=== PATIENT | male | born 1975 | race Caucasian/White ===

== ENCOUNTER 2020-01-28 13:25 | Observation (INO) | payer OTHER ==
[~2020-01-28 13:25] MED LIST: GLYCOPYRROLATE 1 MG/5 ML VIAL ONE; KETOROLAC TROMETHAMINE 60 MG/2 ML SDV ONE; NEOSTIGMINE METHYLSULFATE 10 MG/10 ML VIAL ONE; PHENYLEPHRINE HCL INJ/PF 10 MG/1 ML SDV ONE
[2020-01-28] MEDS ORDERED: ONDANSETRON HCL INJ/PF 4 MG/2 ML SDV IV ONE (13:33)
[2020-01-28] MEDS ORDERED: HYDROMORPHONE HCL INJ/PF 2 MG/ML AMPULE IV ONE (13:33)
[2020-01-28] MEDS ORDERED: NORMAL SALINE 500 ML IV ONE (13:34)
[2020-01-28] MEDS ORDERED: CEFAZOLIN 2 GM/D5W RTU 2 GM/50 ML RTUPB IV ONE (13:34)
--- NOTE | 2020-01-28 13:37 | ER Document Report ---
ED Fall - General Chief Complaint: Fall Injury Stated Complaint: FALL,LEG INJURY Time Seen by Provider: 01/28/20 13:28 Primary Care Provider: ARNIE DAVID FNP [Primary Care Provider] - Follow up as needed Notes: CHIEF COMPLAINT: Left leg fracture HPI: 44-year-old male with history of hypertension presenting for evaluation of possible open left leg fracture. Patient fell off his horse landing with his leg down states the lower leg from the mid tibial region was extending into 45 degree angle. He did straighten it slightly. States he did see the bone come through the skin. Patient denies numbness or tingling in the toes denies knee pain hip pain thigh pain head injury or other complaints at this time. Patient last ate at 730 this morning. EMS reports that they have given patient fentanyl 150 mcg at this point ROS: See HPI - all other systems were reviewed and are otherwise negative Constitutional: no fever or recent illness Eyes: no drainage, no blurred vision ENT: no runny nose, no sore throat Cardiovascular: no chest pain Resp: no SOB, no cough GI: no vomiting, no diarrhea : no dysuria Integumentary: no rash Allergy: no hives Musculoskeletal: + extremity pain or swelling Neurological: no numbness/tingling, no weakness MEDICATIONS: I agree with the patient medications as charted by the RN. ALLERGIES: I agree with the allergies as charted by the RN. PAST MEDICAL HISTORY/PAST SURGICAL HISTORY: Reviewed and agree as charted by RN. SOCIAL HISTORY: Reviewed and agree as charted by RN. FAMILY HISTORY: No significant familial comorbid conditions directly related to patient complaint EXAM: Reviewed vital signs as charted by RN. CONSTITUTIONAL: Airway patent; alert and oriented and responds appropriately to questions. Well-appearing, well-nourished, moderate distress secondary to pain HEAD: Normocephalic, atraumatic EYES: PERRL; EOM intact; Conjunctivae clear, sclerae non-icteric ENT: normal nose; no bleeding; normal pharynx, normal voice, no stridor NECK: Trachea is midline; spine non-tender, no step-offs, good range of motion; no contusions or hematomas CARD: Normal symmetric pulses; RRR; no murmurs, no clicks, no rubs, no gallops RESP: Normal chest excursion with respiration; chest wall appears atraumatic without ecchymoses or crepitance; Breath sounds clear and equal bilaterally ABD/GI: Appears atraumatic without contusions or hematomas; non-distended, soft, non-tender, no rebound, no guarding; no palpable organomegaly or masses PELVIS: Stable, nontender BACK: The back appears atraumatic, no step-offs; spine is nontender; there is no CVA tenderness EXT: Limited range of motion left lower extremity. There does appear to be a 2 cm wound to the medial aspect of the left mid tibial region. There is distal deformity with rotation of the lower leg. Dorsalis pedis and posterior tibial pulses are present in the left ankle and foot. Sensation is intact in the distal toes of the left foot with capillary refill less than 3 seconds SKIN: Normal color for age and race; warm; dry; good turgor NEURO: Moves all extremities equally; Motor and sensory function intact PSYCH: The patient's mood and manner are appropriate. MDM: 44-year-old male with possible open tibial fracture. Will obtain screening labs, preop EKG chest x-ray. Will obtain x-ray imaging of the leg discussed with orthopedics. Will keep patient n.p.o. Will address patient's pain issues. Will start Ancef 2 g IV. Patient states he is up-to-date on his tetanus vaccination TRAVEL OUTSIDE OF THE [place] IN LAST 30 DAYS: No Past Medical History - Social History Smoking Status: Unknown if Ever Smoked Family History: Reviewed & Not Pertinent - Past Medical History Cardiac Medical History: Reports: Hx Hypertension Course - Re-evaluation Re-evalutation: 01/28/20 13:[address] Ramirez, case discussed, will admit Discharge - Discharge Clinical Impression: Fall from horse Qualifiers: Encounter type: initial encounter Qualified Code(s): V80.010A - Animal-rider injured by fall from or being thrown from horse in noncollision accident, initial encounter Fracture of tibia with fibula, left, open Qualifiers: Encounter type: initial encounter Open fracture type: open type III Qualified Code(s): S82.202C - Unspecified fracture of shaft of left tibia, initial encounter for open fracture type IIIA, IIIB, or IIIC; S82.402C - Unspecified fracture of shaft of left fibula, initial encounter for open fracture type IIIA, IIIB, or IIIC Condition: Stable Disposition: ADMITTED INPATIENT Admitting Provider: Dr. Angelo Ramirez Unit Admitted: Surgical Floor Referrals: ARNIE DAVID FNP [Primary Care Provider] - Follow up as needed
[2020-01-28 14:01] LABS: INTERNATIONAL RATION (INR) 1.06; PROTHROMBIN TIME 13.8 SEC (11.4-15.4)
--- NOTE | 2020-01-28 14:05 | RADIOLOGY REPORT (SQ) ---
EXAM DESCRIPTION: TIBIA FIBULA LEFT IMAGES COMPLETED DATE/TIME: 01/28/2020 1:52 pm REASON FOR STUDY: open fracture COMPARISON: None. NUMBER OF VIEWS: Two views. TECHNIQUE: Two radiographic images acquired of the left tibia and fibula to include the knee and ank le in at least one projection. LIMITATIONS: None. FINDINGS: MINERALIZATION: Normal. BONES: Fractures of the midshaft of the tibia and fibula with angulation and overlap. SOFT TISSUES: No obvious swelling or foreign body. OTHER: No other significant finding. IMPRESSION: FRACTURES OF THE TIBIA AND FIBULA. TECHNICAL DOCUMENTATION: JOB ID: [id number] 2010 [employer]- All Rights Reserved Reading location - IP/workstation name: [email or web address]
--- NOTE | 2020-01-28 14:06 | RADIOLOGY REPORT (SQ) ---
EXAM DESCRIPTION: CHEST SINGLE VIEW IMAGES COMPLETED DATE/TIME: 01/28/2020 1:52 pm REASON FOR STUDY: pre op COMPARISON: None. EXAM PARAMETERS: NUMBER OF VIEWS: One view. TECHNIQUE: Single frontal radiographic view of the chest acquired. RADIATION DOSE: NA LIMITATIONS: None. FINDINGS: LUNGS AND PLEURA: No opacities, masses or pneumothorax. No pleural effusion. MEDIASTINUM AND HILAR STRUCTURES: No masses. Contour normal. HEART AND VASCULAR STRUCTURES: Heart normal in size. Normal vasculature. BONES: No acute findings. HARDWARE: None in the chest. OTHER: No other significant finding. IMPRESSION: NO ACUTE RADIOGRAPHIC FINDING IN THE CHEST. TECHNICAL DOCUMENTATION: JOB ID: [id number] 2010 [employer]- All Rights Reserved Reading location - IP/workstation name: [email or web address]
[2020-01-28 14:18] LABS: ABSOLUTE BASOPHILS # (AUTO) 0.1 10^3/uL (0.0-0.2); ABSOLUTE EOSINOPHILS # (AUTO) 0.3 10^3/uL (0.0-0.6); ABSOLUTE LYMPHOCYTES (AUTO) 2.3 10^3/uL (0.5-4.7); ABSOLUTE MONOCYTES (AUTO) 0.9 10^3/uL (0.1-1.4); ABSOLUTE NEUT (AUTO) 8.9 10^3/uL (1.7-8.2); BASOPHILS % (AUTO) 0.6 % (0-2); EOSINOPHILS % (AUTO) 2.3 % (0-6); HEMATOCRIT 44.6 % (37.9-51.0); HEMOGLOBIN 15.4 g/dL (13.5-17.0); LYMPHOCYTES % (AUTO) 18.4 % (13-45); MEAN CORPUSCULAR HEMOGLOBIN 31.1 pg (27.0-33.4); MEAN CORPUSCULAR HGB CONC 34.6 g/dL (32.0-36.0); MEAN CORPUSCULAR VOLUME 90 fl (80-97); MONOCYTES % (AUTO) 6.9 % (3-13); PLATELET COUNT 296 10^3/uL (150-450); RED BLOOD COUNT 4.96 10^6/uL (4.35-5.55); RED CELL DISTRIBUTION WIDTH 13.4 % (11.5-14.0); SEGMENTED NEUTROPHILS % (AUTO) 71.8 % (42-78); TOTAL CELLS COUNTED % (AUTO) 100 %; WHITE BLOOD COUNT 12.4 10^3/uL (4.0-10.5)
[2020-01-28 14:20] LABS: ALBUMIN 4.4 g/dL (3.5-5.0); ALKALINE PHOSPHATASE 92 U/L (38-126); ANION GAP 7 (5-19); ASPARTATE AMINO TRANSFERASE 33 U/L (17-59); BILIRUBIN,DIRECT 0.1 mg/dL (0.0-0.4); BILIRUBIN,TOTAL 0.4 mg/dL (0.2-1.3); BLOOD UREA NITROGEN 19 mg/dL (7-20); CALCIUM 9.5 mg/dL (8.4-10.2); CARBON DIOXIDE 26 mmol/L (22-30); CHLORIDE 103 mmol/L (98-107); GLUCOSE 107 mg/dL (75-110); POTASSIUM 5.1 mmol/L (3.6-5.0); TOTAL PROTEIN 7.8 g/dL (6.3-8.2)
--- NOTE | 2020-01-28 14:30 | PDOC H&P ---
History of Present Illness Admission Date/PCP: 01/28/20 14:10 ZOHAIB CAAL History of Present Illness: DANIELLA TUBBS is a 44 year old male 44-year-old white male with a past medical history significant only for hypertension who fell off a horse today and sustained an open left distal third tib-fib fracture. He is brought to the emergency room and orthopedics is consulted for fracture management. Past Medical History Cardiac Medical History: Reports: Hypertension Past Surgical History Past Surgical History: Reports: None Social History Information Source: Patient, [facility] Records Smoking Status: Unknown if Ever Smoked Family History Family History: Reviewed & Not Pertinent Parental Family History Reviewed: No Children Family History Reviewed: No Sibling(s) Family History Reviewed.: No Medication/Allergy Home Medications: Methocarbamol [Robaxin 500 Mg Tablet] 500 mg PO QID PRN #30 tablet 03/17/16 Oxycodone HCl/Acetaminophen [Percocet 5-325 mg Tablet] 1 - 2 tab PO ASDIR PRN #15 tablet 03/17/16 Review of Systems All systems: as per [facility] Physical Exam Vital Signs: Temp Pulse Resp BP Pulse Ox 37.1 C 01/28/20 13:30 Intake & Output 01/27/20 01/28/20 01/29/20 06:59 06:59 06:59 Weight 117.1 kg Physical Exam: Patient is alert, oriented, and appropriate middle-aged white male lying on emergency room gurney. Left lower extremity is immobilized in a splint. There is considerable blood about the dressing. General appearance: PRESENT: mild distress Head exam: PRESENT: normocephalic Respiratory exam: PRESENT: unlabored Cardiovascular exam: PRESENT: RRR Pulses: PRESENT: +1 pedal pulses bilateral Vascular exam: PRESENT: normal capillary refill GI/Abdominal exam: PRESENT: soft Rectal exam: PRESENT: deferred Extremities exam: PRESENT: other - Dressing is taken down from the anterior aspect of the junction middle and distal thirds of the tibia. This is a grade 2 open soft tissue injury with bone protruding through the skin. Distal neurovascular examination is intact. Neurological exam: PRESENT: alert, awake, oriented to person, oriented to place, oriented to time, oriented to situation. ABSENT: motor sensory deficit Psychiatric exam: PRESENT: appropriate affect, normal mood. ABSENT: homicidal ideation, suicidal ideation Skin exam: PRESENT: dry, intact, warm. ABSENT: cyanosis, rash Results Laboratory Results: 01/28/20 13:43 01/28/20 13:43 01/28/20 01/28/20 13:43 13:43 WBC 12.4 H RBC 4.96 Hgb 15.4 Hct 44.6 MCV 90 MCH 31.1 MCHC 34.6 RDW 13.4 Plt Count 296 Seg Neutrophils % 71.8 Sodium 136.0 L Potassium 5.1 H Chloride 103 Carbon Dioxide 26 Anion Gap 7 BUN 19 Creatinine 1.11 Est GFR ( Amer) > 60 Glucose 107 Calcium 9.5 Total Bilirubin 0.4 AST 33 Alkaline Phosphatase 92 Total Protein 7.8 Albumin 4.4 Impressions: Tibia/Fibula X-Ray 01/28/20 13:32 IMPRESSION: FRACTURES OF THE TIBIA AND FIBULA. Chest X-Ray 01/28/20 13:33 IMPRESSION: NO ACUTE RADIOGRAPHIC FINDING IN THE CHEST. Status: Imported from PACS Assessment & Plan - Diagnosis (1) Fracture of tibia with fibula, left, open Qualifiers: Encounter type: initial encounter Open fracture type: open type III Qualified Code(s): S82.202C - Unspecified fracture of shaft of left tibia, initial encounter for open fracture type IIIA, IIIB, or IIIC; S82.402C - Unspecified fracture of shaft of left fibula, initial encounter for open fracture type IIIA, IIIB, or IIIC Is this a current diagnosis for this admission?: Yes Plan: Plan for an I&D, ORIF of the left distal third tibia fracture under regional anesthesia - Time Time Spent: 50 to 70 Minutes Anticipated discharge: Home with Homehealth Within: within 24 hours
[2020-01-28] MEDS ORDERED: LIDOCAINE 2% INJ-PF (20 MG/ML) 10 ML AMPUL ONE (14:47)
[2020-01-28] MEDS ORDERED: FENTANYL CITRATE INJ/PF 100 MCG/2 ML AMPUL ONE (14:47)
[2020-01-28] MEDS ORDERED: DEXAMETHASONE SOD PHOSPHATE INJ 4 MG/1 ML VIAL ONE (14:48)
[2020-01-28] MEDS ORDERED: HYDROMORPHONE HCL INJ/PF 2 MG/ML AMPULE ONE ×2 (14:48→15:15)
[2020-01-28] MEDS ORDERED: MIDAZOLAM 2 MG/2 ML INJ ONE (14:48)
[2020-01-28] MEDS ORDERED: PROPOFOL INJ 200 MG/20 ML VIAL IV ONE (14:48)
[2020-01-28] MEDS ORDERED: ONDANSETRON HCL INJ/PF 4 MG/2 ML SDV ONE (14:48)
[2020-01-28] MEDS ORDERED: CEFAZOLIN SODIUM 2 GM in DEXTROSE 5%-WATER 100 ML IV ONE (15:00)
--- NOTE | 2020-01-28 15:28 | EKG REPORT ---
SEVERITY:- NORMAL ECG - SINUS RHYTHM : Confirmed by: Sapna Lau MD 28-Jan-2020 15:27:19
[2020-01-28] MEDS ORDERED: BUPIVACAINE HCL 0.5%-EPI 1:200000 INJ/PF 30 ML VIAL ONE (15:31)
[2020-01-28] MEDS ORDERED: TRANEXAMIC ACID INJ/PF 1,000 MG/10 ML SDV ONE (15:31)
[2020-01-28] MEDS ORDERED: OXYCODONE-ACETAMINOPHEN 5-325 MG TABLET PO PRN ×2 (16:27)
[2020-01-28] MEDS ORDERED: PROMETHAZINE HCL INJ 25 MG/1 ML VIAL IV PRN ×2 (16:27)
[2020-01-28] MEDS ORDERED: DIPHENHYDRAMINE HCL 50 MG/ML VIAL IV PRN (16:27)
[2020-01-28] MEDS ORDERED: FENTANYL CITRATE INJ/PF 100 MCG/2 ML AMPUL IV PRN ×3 (16:27)
[2020-01-28] MEDS ORDERED: MORPHINE SULFATE 10 MG/ML INJ IV PRN (16:27)
[2020-01-28] MEDS ORDERED: MEPERIDINE HCL/PF INJ 25 MG/1 ML DISP.SYRIN IV PRN (16:27)
[2020-01-28] MEDS ORDERED: CEFTRIAXONE INJ 1000 MG VIAL ONE (16:35)
[2020-01-28] MEDS ORDERED: BACITRACIN INJ 50,000 UNIT VIAL ONE (17:04)
--- NOTE | 2020-01-28 17:24 | Operative Report ---
Operative Report DATE OF SURGERY: 01/28/20 PREOPERATIVE DIAGNOSIS: Left grade 2 open tib-fib fracture OPERATION: Irrigation debridement of skin, fascia, and bone at the open fracture site. Intramedullary nailing of left tibia fracture SURGEON: JULY MCCALLUM ANESTHESIA: GA TISSUE REMOVED OR ALTERED: Cultures to microbiology ESTIMATED BLOOD LOSS: 50 PROCEDURE: With the patient supine on the operating table left lower extremity undergoes a pre-scrub. The left lower extremity is prepped and draped in a sterile fashion. The skin fascia and bone that have extruded through the skin at the junction of the middle and distal thirds of the tibia along its anteromedial border is debrided of nonviable tissue. Subsequent longitudinal incision was made over the patellar tendon and sharp dissection used to expose the underlying proximal tibia. A pin is placed by hand into the proximal tibial metadiaphysis. A combined reamer is now used to open cortical opening. A ball-tipped guide rods placed down the tibia across the fracture site. Tibial length is noted to be 345 mm. Subsequently flexible reamers were used to enlarge the medullary canal to 11 mm. Next a tibial T2 titanium [place] nail which is 345 mm x 10 mm is advanced over the ball-tipped guide quintin to an appropriate depth. A single proximal interlock is placed. 2 orthogonal distal interlocks were placed. The fracture reduction and hardware placement checked fluoroscopically and felt to be adequate. The tourniquet is deflated. The wounds are irrigated with lavage. The closure was interrupted Vicryl followed by akbar. A sterile compressive dressing was applied and the patient is returned to the PACU in satisfactory condition.
--- NOTE | 2020-01-28 18:03 | RADIOLOGY REPORT (SQ) ---
EXAM DESCRIPTION: NO CHG FLUORO; TIBIA FIBULA LEFT IMAGES COMPLETED DATE/TIME: 01/28/2020 5:36 pm REASON FOR STUDY: ORIF LEFT TIBIA COMPARISON: Left tibia and fibula 01/28/2020 FLUOROSCOPY TIME: 1.1 minutes 12 digital fluoroscopic images saved to PACS. TECHNIQUE: Intra-operative images acquired during surgical procedure to evaluate progress. NUMBER OF IMAGES: 12 digital fluoroscopic images LIMITATIONS: None. FINDINGS: Intra procedural imaging and fluoro during ORIF left tibia and fibula fractures IMPRESSION: IMAGE(S) OBTAINED DURING PROCEDURE. COMMENT: Quality ID 145: Final reports for procedures using fluoroscopy that document radiation exp osure indices, or exposure time and number of fluorographic images (if radiation exposure indices are not available) Please consult full operative report of the attending physician for description of the procedure. TECHNICAL DOCUMENTATION: JOB ID: [id number] 2010 [employer]- All Rights Reserved Reading location - IP/workstation name: [id number]
--- NOTE | 2020-01-28 18:03 | RADIOLOGY REPORT (SQ) ---
EXAM DESCRIPTION: NO CHG FLUORO; TIBIA FIBULA LEFT IMAGES COMPLETED DATE/TIME: 01/28/2020 5:36 pm REASON FOR STUDY: ORIF LEFT TIBIA COMPARISON: Left tibia and fibula 01/28/2020 FLUOROSCOPY TIME: 1.1 minutes 12 digital fluoroscopic images saved to PACS. TECHNIQUE: Intra-operative images acquired during surgical procedure to evaluate progress. NUMBER OF IMAGES: 12 digital fluoroscopic images LIMITATIONS: None. FINDINGS: Intra procedural imaging and fluoro during ORIF left tibia and fibula fractures IMPRESSION: IMAGE(S) OBTAINED DURING PROCEDURE. COMMENT: Quality ID 145: Final reports for procedures using fluoroscopy that document radiation exp osure indices, or exposure time and number of fluorographic images (if radiation exposure indices are not available) Please consult full operative report of the attending physician for description of the procedure. TECHNICAL DOCUMENTATION: JOB ID: [id number] 2010 [employer]- All Rights Reserved Reading location - IP/workstation name: [id number]
[2020-01-28] MEDS ORDERED: RINGERS SOLUTION,LACTATED 1,000 ML IV PRN (18:38)
[2020-01-28] MEDS ORDERED: ONDANSETRON 4 MG TAB.RAPDIS PO PRN (18:40)
[2020-01-28] MEDS ORDERED: TRANEXAMIC ACID INJ/PF 1,000 MG/10 ML SDV IV ONE (19:00)
[2020-01-28] MEDS: ACETAMINOPHEN 325 MG TABLET PO PRN (20:29)
[2020-01-28] MEDS: OXYCODONE HCL IR 5 MG TABLET PO PRN (20:30)
[2020-01-28] MEDS: MORPHINE SULFATE 10 MG/ML INJ IV PRN (22:19)
[2020-01-28] MEDS: IBUPROFEN 800 MG in NORMAL SALINE 250 ML IV SCH (22:23)
[2020-01-29] MEDS: MORPHINE SULFATE 10 MG/ML INJ IV PRN ×2 (00:28→02:36)
[2020-01-29] MEDS: ACETAMINOPHEN 325 MG TABLET PO PRN (05:33)
[2020-01-29] MEDS: IBUPROFEN 800 MG in NORMAL SALINE 250 ML IV SCH (05:33)
[2020-01-29] MEDS: OXYCODONE HCL IR 5 MG TABLET PO PRN ×2 (05:34→11:44)
--- NOTE | 2020-01-29 07:09 | PDOC DISCHARGE SUMMARY ---
Impression - Admit/DC Date/PCP Admission Date/Primary Care Provider: 01/28/20 14:10 ZOHAIB CAAL Discharge Date: 01/29/20 - Discharge Diagnosis (1) Fracture of tibia with fibula, left, open Is this a current diagnosis for this admission?: Yes - Additional Information Resuscitation Status: Full Code Discharge Diet: As Tolerated, Regular Discharge Activity: Balance Activity w/Rest, No tub bath Referrals: ARNIE DAVID FNP [Primary Care Provider] - Follow up as needed Prescriptions: Oxycodone HCl [Oxy-Ir 5 mg Tablet] 5 mg PO Q6HP PRN #40 tablet PRN Reason: Home Medications: Amlodipine Besylate [Norvasc 10 mg Tablet] 10 mg PO DAILY 01/28/20 Carvedilol Phosphate [Carvedilol ER] 10 mg PO DAILY 01/28/20 Duloxetine HCl [Cymbalta] 60 mg PO DAILY 01/28/20 Naproxen [Naprosyn 250 mg Tablet] 400 mg PO QIDP PRN 01/28/20 Sildenafil Citrate 50 mg PO ASDIR PRN 01/28/20 Zolpidem Tartrate [Ambien 5 mg Tablet] 5 mg PO HSP PRN 01/28/20 Oxycodone HCl [Oxy-Ir 5 mg Tablet] 5 mg PO Q6HP PRN #40 tablet 01/29/20 History of Present Illiness History of Present Illness: Patient is a 44-year-old white male who fell off a horse on the day admission and sustained a grade 2 open left tib-fib fracture Hospital Course Hospital Course: Patient is admitted through the emergency room and taken emergently to the operating room where he undergoes an I&D of the open fracture as well as internal fixation. He tolerates the procedure without complications returned to floor in satisfactory condition. He is maintained on IV Rocephin prophylactically. He will be seen by physical therapy on the first postoperative morning for instruction on touchdown weightbearing ambulation. Physical Exam Vital Signs: Temp Pulse Resp BP Pulse Ox 36.6 C 84 18 125/73 93 01/28/20 23:57 01/28/20 23:57 01/28/20 23:57 01/28/20 23:57 01/28/20 23:57 Intake & Output 01/28/20 01/29/20 01/30/20 06:59 06:59 06:59 Intake Total 6000 Output Total 3725 Balance 2275 Weight 112.9 kg General appearance: PRESENT: no acute distress, mild distress, obese Head exam: PRESENT: normocephalic Respiratory exam: PRESENT: unlabored Cardiovascular exam: PRESENT: RRR Vascular exam: PRESENT: normal capillary refill GI/Abdominal exam: PRESENT: soft Rectal exam: PRESENT: deferred Musculoskeletal exam: PRESENT: other - Lower extremity is immobilized in a compressive dressing. Toes demonstrate brisk capillary refill, active flexion extension of the great toe, and intact sensation to light touch. Skin exam: PRESENT: dry, intact, warm. ABSENT: cyanosis, rash Results Laboratory Results: WBC 12.4 10^3/uL (4.0-10.5) H 01/28/20 13:43 RBC 4.96 10^6/uL (4.35-5.55) 01/28/20 13:43 Hgb 15.4 g/dL (13.5-17.0) 01/28/20 13:43 Hct 44.6 % (37.9-51.0) 01/28/20 13:43 MCV 90 fl (80-97) 01/28/20 13:43 MCH 31.1 pg (27.0-33.4) 01/28/20 13:43 MCHC 34.6 g/dL (32.0-36.0) 01/28/20 13:43 RDW 13.4 % (11.5-14.0) 01/28/20 13:43 Plt Count 296 10^3/uL (150-450) 01/28/20 13:43 Lymph % (Auto) 18.4 % (13-45) 01/28/20 13:43 [place] % (Auto) 6.9 % (3-13) 01/28/20 13:43 Eos % (Auto) 2.3 % (0-6) 01/28/20 13:43 Baso % (Auto) 0.6 % (0-2) 01/28/20 13:43 Absolute Neuts (auto) 8.9 10^3/uL (1.7-8.2) H 01/28/20 13:43 Absolute Lymphs (auto) 2.3 10^3/uL (0.5-4.7) 01/28/20 13:43 Absolute Monos (auto) 0.9 10^3/uL (0.1-1.4) 01/28/20 13:43 Absolute Eos (auto) 0.3 10^3/uL (0.0-0.6) 01/28/20 13:43 Absolute Basos (auto) 0.1 10^3/uL (0.0-0.2) 01/28/20 13:43 Seg Neutrophils % 71.8 % (42-78) 01/28/20 13:43 PT 13.8 SEC (11.4-15.4) 01/28/20 13:43 INR 1.06 01/28/20 13:43 Sodium 136.0 mmol/L (137-145) L 01/28/20 13:43 Potassium 5.1 mmol/L (3.6-5.0) H 01/28/20 13:43 Chloride 103 mmol/L (98-107) 01/28/20 13:43 Carbon Dioxide 26 mmol/L (22-30) 01/28/20 13:43 Anion Gap 7 (5-19) 01/28/20 13:43 BUN 19 mg/dL (7-20) 01/28/20 13:43 Creatinine 1.11 mg/dL (0.52-1.25) 01/28/20 13:43 Est GFR ( Amer) > 60 (>60) 01/28/20 13:43 Est GFR (MDRD) Non-Af > 60 (>60) 01/28/20 13:43 Glucose 107 mg/dL (75-110) 01/28/20 13:43 Calcium 9.5 mg/dL (8.4-10.2) 01/28/20 13:43 Total Bilirubin 0.4 mg/dL (0.2-1.3) 01/28/20 13:43 Direct Bilirubin 0.1 mg/dL (0.0-0.4) 01/28/20 13:43 Neonat Total Bilirubin Not Reportable 01/28/20 13:43 Neonat Direct Bilirubin Not Reportable 01/28/20 13:43 Neonat Indirect Bili Not Reportable 01/28/20 13:43 AST 33 U/L (17-59) 01/28/20 13:43 ALT 19 U/L (<50) 01/28/20 13:43 Alkaline Phosphatase 92 U/L (38-126) 01/28/20 13:43 Total Protein 7.8 g/dL (6.3-8.2) 01/28/20 13:43 Albumin 4.4 g/dL (3.5-5.0) 01/28/20 13:43 Impressions: Fluoroscopy 01/28/20 00:00 IMPRESSION: IMAGE(S) OBTAINED DURING PROCEDURE. Tibia/Fibula X-Ray 01/28/20 00:00 IMPRESSION: IMAGE(S) OBTAINED DURING PROCEDURE. Tibia/Fibula X-Ray 01/28/20 13:32 IMPRESSION: FRACTURES OF THE TIBIA AND FIBULA. Chest X-Ray 01/28/20 13:33 IMPRESSION: NO ACUTE RADIOGRAPHIC FINDING IN THE CHEST. Plan Plan of Treatment: Patient be discharged home on a touchdown weightbearing restriction. Follow-up with Dr. Ramirez and [facility] for surgery in 10 days for dressing removal and staple removal. Stroke Is this a Stroke Patient?: No Stroke Pt being discharged on Anti-thrombolytic therapy?: Yes Acute Heart Failure - Is this a Heart Failure Patient?: No
[2020-01-29] MEDS ORDERED: ASPIRIN 81 MG TABLET, ENT COATED PO SCH (10:00)
[2020-01-29 13:17] VITALS: BP 144/71
[2020-01-29] MEDS ORDERED: CEFTRIAXONE 2 GM/D5W RTU 2 GM/50 ML RTUPB IV SCH (18:00)
== END 2020-01-29 14:18 | disposition home or self-care (01) ==
LOC: ER 13:25 → INTOOBSV 14:10 → EH 14:10 → 4N 18:33
PROVIDERS: ADMIT Orthopaedic Surgery; ATTEND Orthopaedic Surgery
DX: S82.392B Other fracture of lower end of left tibia, initial encounter for open fracture type I or II (principal); S82.832B Other fracture of upper and lower end of left fibula, initial encounter for open fracture type I or II; V80.010A Animal-rider injured by fall from or being thrown from horse in noncollision accident, initial encounter; Y93.52 Activity, horseback riding; I10 Essential (primary) hypertension; Z79.899 Other long term (current) drug therapy
CPT/HCPCS: 27759; 93005; 99285; 96374; 96375; 36415; 85025; 85610; 80053; 71045; 73590; 93010; 97161; 99140; 01392; C1713 ×5; C1769; J2250; J3490 ×5; J0690; J1100; J1885; J3010; J2270 ×2; J2710; J1170; J2370; J0696; J2405; J7060; J7050 ×2; J7040; J7120; J2704; J1741 ×2